=== PATIENT | male | born 1970 | race Caucasian/White ===

== ENCOUNTER 2018-07-08 07:15 | Emergency (ER) | payer SELFPAY ==
[~2018-07-08] VITALS: Ht 180.3 cm; Wt 77.3 kg
[2018-07-08] MEDS ORDERED: XANAX1 MG PO ×2 (07:34→07:40)
[2018-07-08] MEDS ORDERED: MOTRIN400 MG PO (08:09)
[2018-07-08 08:25] VITALS: BP 126/75
== END 2018-07-08 08:31 | disposition home or self-care (01) | DRG 563 ==
LOC: ED 07:15
DX: S86.911A Strain of unspecified muscle(s) and tendon(s) at lower leg level, right leg, initial encounter (principal); F17.210 Nicotine dependence, cigarettes, uncomplicated; W10.9XXA Fall (on) (from) unspecified stairs and steps, initial encounter; Y92.009 Unspecified place in unspecified non-institutional (private) residence as the place of occurrence of the external cause
CPT/HCPCS: L1830

== ENCOUNTER 2019-06-30 21:27 | Emergency (ER) | payer SELFPAY ==
[~2019-06-30] VITALS: Ht 172.7 cm; Wt 64.6 kg
[~2019-06-30 21:27] MED LIST: MOTRIN400 MG PO; XANAX1 MG PO
[2019-06-30 22:22] LABS: HEMATOCRIT 40.1 % (39.0-50.0); HEMOGLOBIN 13.5 g/dl (14.0-18.0); IMMATURE GRANULOCYTES 0.2 % (0.0-5.0); MEAN CELL VOLUME 90.7 fL CALC (80.0-100.0); MEAN CORPUSCULAR HGB 30.5 pG CALC (26.0-32.0); MEAN CORPUSCULAR HGB CONC 33.7 g/L CALC (32.0-36.0); NEUT# 4.53 thou/uL (1.82-7.42); RED BLOOD COUNT 4.42 mill/uL (4.70-6.10); RED CELL DISTRI WIDTH 12.5 % (11.5-15.5)
[2019-06-30 22:43] LABS: ALBUMIN 4.1 g/dL (3.2-5.0); ALKALINE PHOSPHATASE 75 u/l (38-126); ANION GAP 12 (6-22 (CALC)); BILIRUBIN, TOTAL 0.3 mg/dL (0.0-1.4); BUN 13 mg/dL (9-20); BUN/CREATININE RATIO 13 (12-20 (CALC)); CARBON DIOXIDE 29 mmol/l (22-30); CHLORIDE 104 mmol/l (95-108); GFR > 60 ML/MIN (>=60 (CALC)); GFR FOR AFR.AMER. > 60 ML/MIN (>=60 (CALC)); POTASSIUM 3.5 mmol/l (3.5-5.1); SGOT/AST 21 u/l (17-59); SODIUM 142 mmol/l (137-146); TOTAL PROTEIN 7.1 g/dL (6.3-8.2)
[2019-06-30 23:13] LABS: TSH, 3RD GENERATION 2.78 uIU/mL (0.47 - 4.68)
[2019-06-30 23:38] VITALS: BP 131/79
== END 2019-06-30 23:38 | disposition home or self-care (01) | DRG 90 ==
LOC: ED 21:27
PROVIDERS: Family Medicine
DX: S06.0X0A Concussion without loss of consciousness, initial encounter (principal); S01.01XA Laceration without foreign body of scalp, initial encounter; F17.210 Nicotine dependence, cigarettes, uncomplicated; V89.2XXA Person injured in unspecified motor-vehicle accident, traffic, initial encounter

== ENCOUNTER 2019-07-07 21:57 | Emergency (ER) | payer SELFPAY ==
[~2019-07-07] VITALS: Ht 172.7 cm; Wt 60.0 kg
[2019-07-07 22:20] VITALS: BP 141/98
== END 2019-07-07 22:20 | disposition home or self-care (01) | DRG 950 ==
LOC: ED 21:57
DX: S01.90XD Unspecified open wound of unspecified part of head, subsequent encounter (principal); V89.2XXD Person injured in unspecified motor-vehicle accident, traffic, subsequent encounter

== ENCOUNTER 2019-09-22 | Emergency (ER) | payer OTHER ==
[2019-09-22 15:45] LABS: HEMATOCRIT 42.7 % (39.0-50.0); HEMOGLOBIN 14.2 g/dl (14.0-18.0); IMMATURE GRANULOCYTES 0.2 % (0.0-5.0); MEAN CELL VOLUME 90.3 fL CALC (80.0-100.0); MEAN CORPUSCULAR HGB CONC 33.3 g/L CALC (32.0-36.0); NEUT# 4.41 thou/uL (1.82-7.42); RED BLOOD COUNT 4.73 mill/uL (4.70-6.10); RED CELL DISTRI WIDTH 12.4 % (11.5-15.5)
[2019-09-22 15:51] LABS: ALBUMIN 4.1 g/dL (3.2-5.0); ALKALINE PHOSPHATASE 87 u/l (38-126); ANION GAP 14 (6-22 (CALC)); BILIRUBIN, TOTAL 0.3 mg/dL (0.0-1.4); BUN 13 mg/dL (9-20); BUN/CREATININE RATIO 14 (12-20 (CALC)); CARBON DIOXIDE 28 mmol/l (22-30); CHLORIDE 103 mmol/l (95-108); GFR > 60 ML/MIN (>=60 (CALC)); GFR FOR AFR.AMER. > 60 ML/MIN (>=60 (CALC)); POTASSIUM 3.8 mmol/l (3.5-5.1); SGOT/AST 25 u/l (17-59); SODIUM 141 mmol/l (137-146)
[2019-09-22] MEDS ORDERED: ULTRAM50 M1 PO (16:07)
== END 2019-09-22 16:25 | disposition home or self-care (01) | DRG 605 ==
PROVIDERS: Emergency Medicine
DX: S00.81XA Abrasion of other part of head, initial encounter (principal); F17.210 Nicotine dependence, cigarettes, uncomplicated; W20.8XXA Other cause of strike by thrown, projected or falling object, initial encounter; Y93.89 Activity, other specified; Y92.89 Other specified places as the place of occurrence of the external cause; Y99.0 Civilian activity done for income or pay

== ENCOUNTER 2019-10-23 | Emergency (ER) | payer OTHER ==
[~2019-10-23] MED LIST changes: +ULTRAM50 M1 PO
[2019-10-23] MEDS ORDERED: BUPRENORPHIN8 MG SL (18:13)
[2019-10-23] MEDS ORDERED: XANAX2 MG PO (18:14)
[2019-10-23] MEDS ORDERED: TRAZODONE100 MG PO (18:14)
== END 2019-10-23 19:33 | disposition home or self-care (01) | DRG 556 ==
DX: M25.562 Pain in left knee (principal); M25.571 Pain in right ankle and joints of right foot; T14.8XXA Other injury of unspecified body region, initial encounter; F17.210 Nicotine dependence, cigarettes, uncomplicated; W01.0XXA Fall on same level from slipping, tripping and stumbling without subsequent striking against object, initial encounter; Y93.89 Activity, other specified; Y92.511 Restaurant or cafe as the place of occurrence of the external cause; Y99.0 Civilian activity done for income or pay

== ENCOUNTER 2020-01-22 11:04 | Emergency (ER) | payer SELFPAY ==
[~2020-01-22 11:04] MED LIST changes: +BUPRENORPHIN8 MG SL; +TRAZODONE100 MG PO; +XANAX2 MG PO
[2020-01-22] MEDS ORDERED: NAPROXEN500 MG PO (12:27)
[2020-01-22 12:35] VITALS: BP 138/79
== END 2020-01-22 12:35 | disposition home or self-care (01) | DRG 563 ==
LOC: ED 11:04
DX: S52.501A Unspecified fracture of the lower end of right radius, initial encounter for closed fracture (principal); F17.210 Nicotine dependence, cigarettes, uncomplicated; W10.9XXA Fall (on) (from) unspecified stairs and steps, initial encounter; Y92.009 Unspecified place in unspecified non-institutional (private) residence as the place of occurrence of the external cause

== ENCOUNTER 2020-02-07 04:49 | Observation (INO) | payer SELFPAY ==
[2020-02-07] VITALS (8 sets, daily range): BP systolic 109–139; BP diastolic 71–87
[~2020-02-07] VITALS: Ht 180.3 cm; Wt 65.0 kg
[~2020-02-07 04:49] MED LIST changes: +NAPROXEN500 MG PO
[2020-02-07 05:46] LABS: HEMATOCRIT 40.4 % (39.0-50.0); HEMOGLOBIN 13.7 g/dl (14.0-18.0); IMMATURE GRANULOCYTES 0.2 % (0.0-5.0); MEAN CORPUSCULAR HGB 29.8 pG CALC (26.0-32.0); MEAN CORPUSCULAR HGB CONC 33.9 g/dL CAL (32.0-36.0); NEUT# 6.98 thou/uL (1.82-7.42); RED BLOOD COUNT 4.59 mill/uL (4.70-6.10); RED CELL DISTRI WIDTH 13.8 % (11.5-15.5)
[2020-02-07 06:00] LABS: ALBUMIN 4.6 g/dL (3.2-5.0); ALKALINE PHOSPHATASE 98 u/l (38-126); ANION GAP 11 (6-22 (CALC)); BUN 15 mg/dL (9-20); BUN/CREATININE RATIO 17 (12-20 (CALC)); CARBON DIOXIDE 30 mmol/l (22-30); CHLORIDE 100 mmol/l (95-108); CREATININE 0.9 mg/dL (0.7-1.3); ETHYL ALCOHOL 0 mg/dl (0-30); GFR > 60 ML/MIN (>=60 (CALC)); GFR FOR AFR.AMER. > 60 ML/MIN (>=60 (CALC)); POTASSIUM 3.3 mmol/l (3.5-5.1); SGOT/AST 34 u/l (17-59); SODIUM 138 mmol/l (137-146); TOTAL PROTEIN 7.6 g/dL (6.3-8.2)
[2020-02-07 06:05] LABS: BILIRUBIN, TOTAL 0.9 mg/dL (0.0-1.4)
[2020-02-07 06:11] LABS: MYOGLOBIN 84 ng/mL (0 - 121)
[2020-02-07 06:51] LABS: URINE BLOOD DIPSTICK NEGATIVE (NEGATIVE); URINE COLOR YELLOW; URINE GLUCOSE - DIPSTICK NEGATIVE (NEGATIVE); URINE KETONE TRACE mg/dL (NEGATIVE); URINE LEUK ESTERASE NEGATIVE (NEGATIVE); URINE NITRITE - DIPSTICK NEGATIVE (Negative); URINE PROTEIN - DIPSTICK TRACE mg/dL (NEG-TRACE); URINE SPECIFIC GRAVITY >=1.030; URINE UROBILINOGEN - DIPSTICK 0.2 E.U./dL (0.2)
[2020-02-07 06:58] LABS: URINE BILIRUBIN - DIPSTICK SMALL (NEGATIVE)
[2020-02-08] VITALS: BP 131/89
[2020-02-08 02:00] VITALS: BP 107/62
[2020-02-08 04:00] VITALS: BP 109/70
[2020-02-08 05:36] LABS: HEMATOCRIT 38.9 % (39.0-50.0); HEMOGLOBIN 12.8 g/dl (14.0-18.0); IMMATURE GRANULOCYTES 0.4 % (0.0-5.0); MEAN CELL VOLUME 90.5 fL CALC (80.0-100.0); MEAN CORPUSCULAR HGB 29.8 pG CALC (26.0-32.0); MEAN CORPUSCULAR HGB CONC 32.9 g/dL CAL (32.0-36.0); NEUT# 5.04 thou/uL (1.82-7.42); RED BLOOD COUNT 4.3 mill/uL (4.70-6.10); RED CELL DISTRI WIDTH 13.6 % (11.5-15.5)
[2020-02-08 05:53] LABS: ANION GAP 11 (6-22 (CALC)); BUN 14 mg/dL (9-20); BUN/CREATININE RATIO 18 (12-20 (CALC)); CARBON DIOXIDE 24 mmol/l (22-30); CHLORIDE 107 mmol/l (95-108); CREATININE 0.8 mg/dL (0.7-1.3); GFR > 60 ML/MIN (>=60 (CALC)); GFR FOR AFR.AMER. > 60 ML/MIN (>=60 (CALC)); POTASSIUM 3.9 mmol/l (3.5-5.1); SODIUM 138 mmol/l (137-146)
[2020-02-08 06:00] VITALS: BP 120/73
[2020-02-08 08:00] VITALS: BP 98/61
[2020-02-08] MEDS ORDERED: BUPRENORPHIN8 MG SL (08:38)
[2020-02-08] MEDS ORDERED: ALPRAZOLAM2 M2 PO (08:38)
[2020-02-08 10:00] VITALS: BP 140/83
== END 2020-02-08 11:25 | disposition home or self-care (01) | DRG 948 ==
LOC: ED 04:49 → ED-I 07:10 → ED 07:27 → ED-I 07:28 → ICU 08:10
PROVIDERS: Emergency Medicine; Internal Medicine; ADMIT Internal Medicine; ATTEND Internal Medicine
DX: R41.82 Altered mental status, unspecified (principal); F41.9 Anxiety disorder, unspecified; G89.29 Other chronic pain; F17.200 Nicotine dependence, unspecified, uncomplicated; S62.101D Fracture of unspecified carpal bone, right wrist, subsequent encounter for fracture with routine healing; X58.XXXD Exposure to other specified factors, subsequent encounter; Z79.899 Other long term (current) drug therapy; Z20.828 Contact with and (suspected) exposure to other viral communicable diseases
CPT/HCPCS: J2060